=== PATIENT | female | born 1950 | race Caucasian/White ===

== ENCOUNTER 2019-04-26 16:04 | Emergency (ER) | payer BC, MEDICARE ==
--- NOTE | 2019-04-26 16:49 | RAD ---
EXAM: XR Hip Lt 2-3 View PROVIDED CLINICAL HISTORY: Pain FINDINGS: There is no evidence for fracture or other acute osseous abnormality. Alignment appears anatomic. Melissa nt spaces appear preserved. IMPRESSION: No evidence for an acute osseous abnormality. If there is persistent clinical concern, conservative m anagement and follow-up imaging advised.
--- NOTE | 2019-04-26 16:51 | RAD ---
EXAM: XR Ribs Lt>=2 View W/PA CXR PROVIDED CLINICAL HISTORY: Trauma COMPARISON: None FINDINGS: Cardiac and mediastinal silhouette is within normal limits. No focal consolidation, pleural fluid or pneumothorax apparent. Bibasilar subsegmental atelectatic changes are seen. No evidence for displaced left-sided rib fracture. IMPRESSION: No evidence for an acute process.
== END 2019-04-26 17:25 | disposition home or self-care (01) ==
LOC: SCSER 16:04
DX: S20.212A Contusion of left front wall of thorax, initial encounter (principal); S70.02XA Contusion of left hip, initial encounter; I10 Essential (primary) hypertension; M19.90 Unspecified osteoarthritis, unspecified site; M06.9 Rheumatoid arthritis, unspecified; G43.909 Migraine, unspecified, not intractable, without status migrainosus; W01.198A Fall on same level from slipping, tripping and stumbling with subsequent striking against other object, initial encounter

== ENCOUNTER 2023-01-04 17:53 | Inpatient (IN) | payer OTHER, MEDICARE, BC ==
[2023-01-04] MEDS ORDERED: Boostrix 0.5 ML (Tdap) VIAL (>/=7 yrs of age) ONE (18:01)
[2023-01-04] MEDS ORDERED: fentaNYL 50 mcg/mL 1 mL Vial ONE ×2 (18:01→21:13)
[2023-01-04] MEDS ORDERED: CEFAZOLIN 2 GM VIAL ONE (18:01)
[2023-01-04 18:25] LABS: #Basophils 0.1 thou/uL (0.0-0.2); #Eosinphils 0.1 thou/uL (0.0-0.7); #Monocytes 0.6 thou/uL (0.11-0.59); #Neutrophils 3.1 thou/uL (1.40-6.50); %Basophils 0.9 % (0.0-1.0); %Eosinophils 2.1 % (0.0-10.0); %Lymphocytes 32.8 % (21.0-51.0); %Monocytes 10.9 % (0.0-10.0); %Neutrophils 52.8 % (42.0-75.0); Hemoglobin 9.9 g/dL (12.0-16.0); Mean Corpuscular HGB CONC 33.9 g/dL (32.0-36.0); Mean Corpuscular Hemoglobin 31.8 pg (27.0-31.0); Mean Corpuscular Volume 93.9 fl (78.0-98.0); Mean Platelet Volume 10.9 fL (7.4-10.4); Platelet Count 164 10x3/uL (130-400); RBC Distribution Width 13.2 % (11.5-14.5); Red Blood Cell (RBC) Count 3.11 mill/uL (4.20-5.40); White Blood Cell (WBC) Count 5.8 10x3/uL (4.8-10.8)
[2023-01-04 18:37] LABS: INR-International Normal Ratio 1.2; PTT 27.8 sec (22.9-36.1); Prothrombin Time 15.9 sec (12.0-14.7)
[2023-01-04 18:51] LABS: ALT (SGPT) 12 U/L (8-55); AST (SGOT) 20 U/L (5-34); Albumin 3.3 g/dL (3.4-4.8); Alkaline Phosphatase 48 U/L (40-110); Anion Gap 11 mmol/L (10-20); BUN (Urea Nitrogen) 31 mg/dL (9.8-20.1); Bilirubin, Total 0.4 mg/dL (0.2-1.2); Calc. Creatinine Clearance 0 mL/min (70-130); Carbon Dioxide 19 mmol/L (23-31); Chloride 113 mmol/L (98-107); Estimated GFR 43; Globulin 2.2 g/dL (2.4-3.5); Glucose 155 mg/dL (83-110); Potassium 4.2 mmol/L (3.5-5.1); Protein, Total 5.5 g/dL (5.8-8.1)
[2023-01-04 18:55] LABS: Sodium 139 mmol/L (136-145)
[2023-01-04] MEDS ORDERED: fentaNYL PF 100 MCG/2 ML SYRINGE ONE (19:19)
[2023-01-04] MEDS ORDERED: Vancomycin 1 GM VIAL ONE (19:25)
[2023-01-04] MEDS ORDERED: Bupivacaine HCl 0.5%/Epinephrine 1:200,000/PF 30 ml Vial ONE (19:25)
[2023-01-04] MEDS ORDERED: Bacitracin Zinc Ointment 30 gm TUBE ONE (19:26)
[2023-01-04] MEDS ORDERED: Rocuronium Bromide 10 MG/ML (10ML VIAL) ONE (20:01)
[2023-01-04] MEDS ORDERED: PROPOFOL 200 MG/20 ML VIAL ONE (20:01)
[2023-01-04] MEDS ORDERED: Dexamethasone 20 MG/5 ML VIAL ONE (20:01)
[2023-01-04] MEDS ORDERED: GLYCOPYRROLATE/PF 0.2 MG/ML VIAL ONE (20:01)
[2023-01-04] MEDS ORDERED: Lidocaine 1% PF 5 ML VIAL ONE (20:01)
[2023-01-04] MEDS ORDERED: NEOSTIGMINE 3 MG/3 ML SYR 3 MG/3 ML SYRINGE ONE (20:01)
[2023-01-04] MEDS ORDERED: Succinylcholine 200 MG/10 ml SYRINGE FS ONE (20:01)
[2023-01-04] MEDS ORDERED: Dextrose 50% Abboject 50 ML SYRINGE SLOW IVP PRN (20:35)
[2023-01-04] MEDS ORDERED: Ondansetron ODT 4 MG TAB PO PRN (20:35)
[2023-01-04] MEDS ORDERED: Glucagon 1 MG/ML KIT IM PRN (20:35)
[2023-01-04] MEDS ORDERED: Ondansetron PF 4 MG/2 ML Vial IVP PRN (20:35)
[2023-01-04] MEDS ORDERED: TETANUS, DIPHTHERIA TOX,ADULT (TDVAX) 0.5 ML VIAL IM ONE (20:35)
[2023-01-04] MEDS ORDERED: Dextrose 5% in Water 1,000 ML IV PRN (20:35)
[2023-01-04] MEDS ORDERED: Lactated Ringer's 1,000 ML IV SCH (20:45)
[2023-01-04] MEDS ORDERED: Ondansetron HCl/PF 4 MG/2 ML Vial IVP PRN (21:18)
[2023-01-04] MEDS ORDERED: Promethazine HCl 25 MG/ML VIAL IM PRN (21:18)
[2023-01-04] MEDS ORDERED: Morphine 4 MG/ML VIAL ONE (21:27)
[2023-01-04] MEDS ORDERED: Promethazine HCl 25 MG/ML VIAL ONE (21:41)
[2023-01-04] MEDS: Famotidine 20 MG TAB PO SCH (23:10)
[2023-01-04 23:28] VITALS: BMI 39.1
[2023-01-04] MEDS: Acetaminophen 325 MG TAB PO SCH (23:32)
[2023-01-04] MEDS: traMADol HCl 50 MG TAB PO SCH (23:32)
[2023-01-05] MEDS: Acetaminophen 325 MG TAB PO SCH ×4 (05:13→23:25)
[2023-01-05] MEDS: traMADol HCl 50 MG TAB PO SCH ×4 (05:13→23:25)
[2023-01-05 06:59] LABS: #Monocytes 0.5 thou/uL (0.11-0.59); #Neutrophils 6.1 thou/uL (1.40-6.50); %Basophils 0.3 % (0.0-1.0); %Lymphocytes 7.5 % (21.0-51.0); %Monocytes 7.2 % (0.0-10.0); %Neutrophils 84.3 % (42.0-75.0); Hemoglobin 8.7 g/dL (12.0-16.0); Mean Corpuscular HGB CONC 34.7 g/dL (32.0-36.0); Mean Corpuscular Hemoglobin 32.2 pg (27.0-31.0); Mean Platelet Volume 11.2 fL (7.4-10.4); Platelet Count 147 10x3/uL (130-400); RBC Distribution Width 13.3 % (11.5-14.5); White Blood Cell (WBC) Count 7.2 10x3/uL (4.8-10.8)
[2023-01-05 07:22] LABS: Anion Gap 11 mmol/L (10-20); BUN (Urea Nitrogen) 28 mg/dL (9.8-20.1); Calc. Creatinine Clearance 82 mL/min (70-130); Calcium 7.6 mg/dL (7.8-10.44); Carbon Dioxide 21 mmol/L (23-31); Chloride 113 mmol/L (98-107); Estimated GFR 66; Glucose 138 mg/dL (83-110); Magnesium 1.8 mg/dL (1.6-2.6); Phosphorus 3.7 mg/dL (2.3-4.7); Potassium 4.8 mmol/L (3.5-5.1); Sodium 140 mmol/L (136-145)
[2023-01-05] MEDS: Famotidine 20 MG TAB PO SCH ×2 (09:49→20:48)
[2023-01-05] MEDS: Ferrous Sulfate 325 MG TAB PO SCH ×2 (09:49→18:04)
[2023-01-05] MEDS: Ascorbic Acid 500 mg Chewable Tablet PO SCH (09:49)
[2023-01-05] MEDS: Gabapentin 100 MG CAP PO SCH (20:48)
[2023-01-05] MEDS: Cyclobenzaprine 10 MG TAB PO PRN (20:53)
[2023-01-06] MEDS: traMADol HCl 50 MG TAB PO SCH ×4 (05:24→23:04)
[2023-01-06] MEDS: Acetaminophen 325 MG TAB PO SCH ×3 (05:25→18:17)
[2023-01-06 06:27] LABS: #Basophils 0.1 thou/uL (0.0-0.2); #Eosinphils 0.1 thou/uL (0.0-0.7); #Monocytes 0.9 thou/uL (0.11-0.59); #Neutrophils 3.5 thou/uL (1.40-6.50); %Basophils 0.8 % (0.0-1.0); %Eosinophils 2.2 % (0.0-10.0); %Lymphocytes 22.7 % (21.0-51.0); %Monocytes 14.8 % (0.0-10.0); %Neutrophils 58.3 % (42.0-75.0); Hemoglobin 6.5 g/dL (12.0-16.0); Mean Corpuscular HGB CONC 33.3 g/dL (32.0-36.0); Mean Corpuscular Hemoglobin 31.9 pg (27.0-31.0); Mean Corpuscular Volume 95.6 fl (78.0-98.0); Platelet Count 126 10x3/uL (130-400); RBC Distribution Width 13.8 % (11.5-14.5); Red Blood Cell (RBC) Count 2.04 mill/uL (4.20-5.40); White Blood Cell (WBC) Count 5.9 10x3/uL (4.8-10.8)
[2023-01-06 06:59] LABS: Anion Gap 8 mmol/L (10-20); BUN (Urea Nitrogen) 22 mg/dL (9.8-20.1); Calc. Creatinine Clearance 90 mL/min (70-130); Carbon Dioxide 24 mmol/L (23-31); Chloride 111 mmol/L (98-107); Estimated GFR 74; Glucose 120 mg/dL (83-110); Magnesium 2.1 mg/dL (1.6-2.6); Phosphorus 2.7 mg/dL (2.3-4.7); Potassium 4.3 mmol/L (3.5-5.1); Sodium 139 mmol/L (136-145)
[2023-01-06] MEDS: Gabapentin 100 MG CAP PO SCH ×3 (09:56→20:09)
[2023-01-06] MEDS: Ferrous Sulfate 325 MG TAB PO SCH ×2 (09:56→16:17)
[2023-01-06] MEDS: Ascorbic Acid 500 mg Chewable Tablet PO SCH (09:56)
[2023-01-06] MEDS: Famotidine 20 MG TAB PO SCH ×2 (09:57→20:09)
[2023-01-06] MEDS: traMADol HCl 50 MG TAB PO PRN ×2 (10:02→20:09)
[2023-01-06] MEDS: Cyclobenzaprine 10 MG TAB PO PRN (20:08)
[2023-01-06] MEDS: Acetaminophen 500 MG TAB PO SCH (21:47)
[2023-01-07] MEDS: Acetaminophen 500 MG TAB PO SCH ×6 (01:35→21:08)
[2023-01-07] MEDS: Cyclobenzaprine 10 MG TAB PO PRN ×2 (05:07→21:09)
[2023-01-07] MEDS: traMADol HCl 50 MG TAB PO SCH ×3 (05:08→16:19)
[2023-01-07 06:29] LABS: #Eosinphils 0.2 thou/uL (0.0-0.7); #Monocytes 0.8 thou/uL (0.11-0.59); #Neutrophils 3.1 thou/uL (1.40-6.50); %Basophils 0.7 % (0.0-1.0); %Eosinophils 3.5 % (0.0-10.0); %Monocytes 14.6 % (0.0-10.0); %Neutrophils 56.2 % (42.0-75.0); Hemoglobin 8.5 g/dL (12.0-16.0); Mean Corpuscular Hemoglobin 31.7 pg (27.0-31.0); Mean Corpuscular Volume 93.3 fl (78.0-98.0); Mean Platelet Volume 10.8 fL (7.4-10.4); Platelet Count 125 10x3/uL (130-400); RBC Distribution Width 15.2 % (11.5-14.5); Red Blood Cell (RBC) Count 2.68 mill/uL (4.20-5.40); White Blood Cell (WBC) Count 5.5 10x3/uL (4.8-10.8)
[2023-01-07 06:56] LABS: Anion Gap 10 mmol/L (10-20); BUN (Urea Nitrogen) 17 mg/dL (9.8-20.1); Calc. Creatinine Clearance 97 mL/min (70-130); Calcium 8.4 mg/dL (7.8-10.44); Carbon Dioxide 23 mmol/L (23-31); Chloride 110 mmol/L (98-107); Estimated GFR 81; Glucose 107 mg/dL (83-110); Magnesium 1.8 mg/dL (1.6-2.6); Phosphorus 2.1 mg/dL (2.3-4.7); Potassium 4.1 mmol/L (3.5-5.1); Sodium 139 mmol/L (136-145)
[2023-01-07] MEDS: Ferrous Sulfate 325 MG TAB PO SCH ×2 (09:42→16:18)
[2023-01-07] MEDS: Ascorbic Acid 500 mg Chewable Tablet PO SCH (09:43)
[2023-01-07] MEDS: Famotidine 20 MG TAB PO SCH ×2 (09:43→21:09)
[2023-01-07] MEDS: Gabapentin 100 MG CAP PO SCH ×3 (09:43→21:09)
[2023-01-07 12:32] LABS: #Basophils 0.1 thou/uL (0.0-0.2); #Eosinphils 0.2 thou/uL (0.0-0.7); #Monocytes 0.7 thou/uL (0.11-0.59); %Monocytes 12.5 % (0.0-10.0); %Neutrophils 58.1 % (42.0-75.0); Hemoglobin 8.2 g/dL (12.0-16.0); Mean Corpuscular HGB CONC 34.5 g/dL (32.0-36.0); Mean Corpuscular Hemoglobin 32.3 pg (27.0-31.0); Mean Corpuscular Volume 93.7 fl (78.0-98.0); Mean Platelet Volume 11.1 fL (7.4-10.4); Platelet Count 136 10x3/uL (130-400); RBC Distribution Width 15.3 % (11.5-14.5); Red Blood Cell (RBC) Count 2.54 mill/uL (4.20-5.40); White Blood Cell (WBC) Count 5.2 10x3/uL (4.8-10.8)
[2023-01-07] MEDS ORDERED: Gabapentin 100 MG CAP PO SCH (15:45)
[2023-01-08] MEDS: Acetaminophen 500 MG TAB PO SCH ×6 (00:11→21:05)
[2023-01-08] MEDS: traMADol HCl 50 MG TAB PO SCH ×5 (00:12→23:50)
[2023-01-08] MEDS: Furosemide 20 MG TAB PO SCH (09:41)
[2023-01-08] MEDS: Famotidine 20 MG TAB PO SCH ×2 (09:41→21:05)
[2023-01-08] MEDS: Ascorbic Acid 500 mg Chewable Tablet PO SCH (09:41)
[2023-01-08] MEDS: Ferrous Sulfate 325 MG TAB PO SCH ×2 (09:41→17:45)
[2023-01-08] MEDS: Gabapentin 100 MG CAP PO SCH ×3 (09:42→21:02)
[2023-01-08] MEDS: Docusate 100 MG CAP PO SCH ×2 (09:45→21:05)
[2023-01-08 09:59] LABS: Hemoglobin 8.3 g/dL (12.0-16.0)
[2023-01-09] MEDS: Acetaminophen 500 MG TAB PO SCH ×5 (00:20→18:04)
[2023-01-09] MEDS: traMADol HCl 50 MG TAB PO SCH ×3 (05:01→18:04)
[2023-01-09] MEDS ORDERED: Senokot 8.6 MG TAB PO SCH (09:00)
[2023-01-09] MEDS ORDERED: Polyethylene Glycol 3350 17 GM Packet PO SCH (09:00)
[2023-01-09] MEDS: Ascorbic Acid 500 mg Chewable Tablet PO SCH (09:20)
[2023-01-09] MEDS: Gabapentin 100 MG CAP PO SCH ×2 (09:20→13:07)
[2023-01-09] MEDS: Ferrous Sulfate 325 MG TAB PO SCH (09:20)
[2023-01-09] MEDS: Furosemide 20 MG TAB PO SCH (09:22)
[2023-01-09] MEDS: Famotidine 20 MG TAB PO SCH (09:22)
[2023-01-09] MEDS: Docusate 100 MG CAP PO SCH (09:22)
[2023-01-09 12:45] LABS: #Basophils 0.1 thou/uL (0.0-0.2); #Eosinphils 0.2 thou/uL (0.0-0.7); #Monocytes 0.6 thou/uL (0.11-0.59); #Neutrophils 3.1 thou/uL (1.40-6.50); %Eosinophils 3.1 % (0.0-10.0); %Monocytes 12.4 % (0.0-10.0); %Neutrophils 60.8 % (42.0-75.0); Hemoglobin 8.5 g/dL (12.0-16.0); Mean Corpuscular HGB CONC 33.5 g/dL (32.0-36.0); Mean Corpuscular Hemoglobin 31.6 pg (27.0-31.0); Mean Corpuscular Volume 94.4 fl (78.0-98.0); Mean Platelet Volume 10.2 fL (7.4-10.4); Platelet Count 166 10x3/uL (130-400); RBC Distribution Width 15.1 % (11.5-14.5); Red Blood Cell (RBC) Count 2.69 mill/uL (4.20-5.40); White Blood Cell (WBC) Count 5.2 10x3/uL (4.8-10.8)
[2023-01-09 15:41] VITALS: BP 108/66; TEMP 97.7
[2023-01-10] MEDS ORDERED: Ferrous Sulfate 325 MG TAB PO SCH (08:00)
== END 2023-01-09 19:05 | DRG 571 ==
LOC: ERS 17:53 → SDC/OP 20:40 → SJJU 20:52 → OBSVTOIN 01-06 16:45
PROVIDERS: ADMIT Orthopaedic Surgery; ATTEND Orthopaedic Surgery
PROC: 0JBN0ZZ Excision of Right Lower Leg Subcutaneous Tissue and Fascia, Open Approach (ICD-10-PCS; principal; 2023-01-04)
PROC: 3E0234Z Introduction of Serum, Toxoid and Vaccine into Muscle, Percutaneous Approach (ICD-10-PCS; 2023-01-04)
PROC: 30233N1 Transfusion of Nonautologous Red Blood Cells into Peripheral Vein, Percutaneous Approach (ICD-10-PCS; 2023-01-06)
DX: S80.11XA Contusion of right lower leg, initial encounter (principal); D62 Acute posthemorrhagic anemia; N17.9 Acute kidney failure, unspecified; I10 Essential (primary) hypertension; E78.5 Hyperlipidemia, unspecified; E66.9 Obesity, unspecified; G43.909 Migraine, unspecified, not intractable, without status migrainosus; G89.11 Acute pain due to trauma; S80.12XA Contusion of left lower leg, initial encounter; V03.99XA Pedestrian with other conveyance injured in collision with car, pick-up truck or van, unspecified whether traffic or nontraffic accident, initial encounter; Z98.890 Other specified postprocedural states; Z79.899 Other long term (current) drug therapy; Z68.39 Body mass index [BMI] 39.0-39.9, adult; Z23 Encounter for immunization
CPT/HCPCS: 36415; 36430; 71045; 80048; 80053; 83735; 84100; 85014; 85018; 85025; 85610; 85730; 86850; 86900; 86901; 90471; 90715; 93005; 96365; 96372; 96375; G0378; G0390; J1100; J1650; J2270; J2550; J2704; J3010; J3370; J3490; P9016

== ENCOUNTER 2024-06-21 09:37 | Emergency (ER) | payer MEDICARE, BC ==
[2024-06-21 10:20] LABS: #Basophils 0.05 10x3/uL (0.0-0.2); %Basophils 1.1 % (0.0-1.0); %Eosinophils 2.9 % (0.0-10.0); %Lymphocytes 17.4 % (21.0-51.0); %Monocytes 10.8 % (0.0-10.0); %Neutrophils 67.4 % (42.0-75.0); Hemoglobin 12.4 g/dL (12.0-16.0); Mean Corpuscular HGB CONC 34.4 g/dL (32.0-36.0); Mean Corpuscular Volume 92.8 fL (78.0-98.0); Mean Platelet Volume 10.2 fL (7.4-10.4); Platelet Count 195 10x3/uL (130-400); RBC Distribution Width 13.3 % (11.5-14.5); Red Blood Cell (RBC) Count 3.88 mill/uL (4.20-5.40)
[2024-06-21 10:37] LABS: ALT (SGPT) 54 U/L (8-55); AST (SGOT) 41 U/L (5-34); Albumin 3.6 g/dL (3.4-4.8); Alkaline Phosphatase 83 U/L (40-110); Anion Gap 12 mmol/L (10-20); BUN (Urea Nitrogen) 15 mg/dL (9.8-20.1); Bilirubin, Total 0.7 mg/dL (0.2-1.2); Calc. Creatinine Clearance 0 mL/min (70-130); Calcium 8.7 mg/dL (7.8-10.44); Carbon Dioxide 18 mmol/L (23-31); Chloride 111 mmol/L (98-107); Estimated GFR 77; Globulin 3.7 g/dL (2.4-3.5); Glucose 109 mg/dL (83-110); Lipase 20 U/L (8-78); Potassium 3.9 mmol/L (3.5-5.1); Protein, Total 7.3 g/dL (5.8-8.1); Sodium 137 mmol/L (136-145)
[2024-06-21 11:58] LABS: Bacteria/HPF None Seen HPF (None Seen); Bilirubin Negative (Negative); Blood, Urine Trace (Negative); CAUTI Indications for Culture Pelvic or flank pain; Clarity Clear (Clear); Glucose, Urine (Dipstick) Normal (Negative); Ketone, Urine Negative (Negative); Leukocyte Negative Leu/uL (Negative); Nitrite Negative (Negative); Protein, Urine (Dipstick) 10 mg/dL (Neg-Trace); RBC/HPF 0-3 HPF (0-3); Specific Gravity, Urine 1.024 (1.002-1.036); Squamous Epithelial 0-3 HPF (0-3); Urobilinogen 6 mg/dL (Less than 2); WBC/HPF 0-3 HPF (0-3)
[2024-06-21 11:59] LABS: Troponin I Less than 0.010 ng/mL (< 0.028)
[2024-06-21 12:00] LABS: Urine Culture Reflex No No
[2024-06-21] MEDS ORDERED: Morphine 2 MG/ML VIAL ONE (12:07)
[2024-06-21] MEDS ORDERED: Ondansetron PF 4 MG/2 ML Vial ONE (12:07)
== END 2024-06-21 13:20 | disposition home or self-care (01) ==
LOC: ERS 09:37
DX: K52.9 Noninfective gastroenteritis and colitis, unspecified (principal); I10 Essential (primary) hypertension; Z55.6 Problems related to health literacy
CPT/HCPCS: 74177; 80053; 81001; 83605; 83690; 84484; 85025; 87040; 93005; J2272; J2405; 36415; 96374; 96375